=== PATIENT | male | born 1990 | race Caucasian/White ===

== ENCOUNTER → 2017-03-24 | Outpatient (CLI) | payer OTHER ==
[2017-03-26 11:20] LABS: HCV Qualitative Result DETECTED (Not detected)
== END | disposition home or self-care (01) ==
LOC: LABWHC1 11:59
PROVIDERS: ATTEND Physician Assistant
DX: B18.2 Chronic viral hepatitis C (principal)
CPT/HCPCS: 36415; 87522; 87902

== ENCOUNTER 2018-08-10 07:56 | Emergency (ER) | payer OTHER ==
[2018-08-10 08:02] VITALS: RESP 18
[2018-08-10] MEDS ORDERED: SODIUM CHLORIDE 0.9% 1,000 ML IV STA (08:12)
[2018-08-10] MEDS ORDERED: ONDANSETRON 4 MG/2 ML VIAL IVP STA (08:12)
[2018-08-10] MEDS ORDERED: PANTOPRAZOLE 40 MG/10 ML VIAL IVP STA (08:12)
--- NOTE | 2018-08-10 08:20 | ED ---
General Adult HPI - General Chief complaint: GI Bleed Stated complaint: Vomiting blood Time Seen by Provider: 08/10/18 08:06 Source: patient, RN notes reviewed Mode of arrival: ambulatory Limitations: no limitations - History of Present Illness Initial comments: Patient 28-year-old male significant past medical history for alcohol, hepatitis C, presenting to the emergency room today with a chief complaint of nausea vomiting this morning. Patient states that he had 3 episodes of vomitus point approximate 4:30 AM. Patient states that he had 2 episodes of vomiting after drinking some milk. States on the third episode he noticed some blood. Patient denies any complaints at this time. He denies any other symptoms. Patient denies any recent fever, chills, shortness of breath, chest pain, back pain, numbness or tingling, dysuria or hematuria, constipation or diarrhea, headaches or visual changes, or any other complaints. - Related Data Previous Rx's Medication Instructions Recorded Omeprazole 20 mg PO DAILY #20 capsule. 08/10/18 Ondansetron Odt [Zofran ODT] 4 mg PO Q8HR PRN #20 tab 08/10/18 Allergies Allergy/AdvReac Type Severity Reaction Status Date / Time No Known Allergies Allergy Verified 08/10/18 08:48 Review of Systems ROS Statement: Those systems with pertinent positive or pertinent negative responses have been documented in the HPI. ROS Other: All systems not noted in ROS Statement are negative. Past Medical History Past Medical History: No Reported History History of Any Multi-Drug Resistant Organisms: None Reported Past Surgical History: No Surgical Hx Reported Past Psychological History: No Psychological Hx Reported Smoking Status: Current some day smoker Past Alcohol Use History: Daily Past Drug Use History: Heroin General Exam - General Exam Comments Initial Comments: General: The patient is awake and alert, in no distress, and does not appear acutely ill. Eye: Extra-ocular movements are intact. No nystagmus. There is normal conjunctiva bilaterally. No signs of icterus. Ears, nose, mouth and throat: There are moist mucous membranes and no oral lesions. Neck: The neck is supple, there is no tenderness or JVD. Cardiovascular: There is a regular rate and rhythm. No murmur, rub or gallop is appreciated. Respiratory: Lungs are clear to auscultation, respirations are non-labored, breath sounds are equal. No wheezes, stridor, rales, or rhonchi. Gastrointestinal: Soft, non-distended, non-tender abdomen without masses or organomegaly noted. There is no rebound or guarding present. No CVA tenderness. Bowel sounds are unremarkable. Musculoskeletal: Normal ROM, no tenderness. Neurological: A&O x 3. CN II-XII intact, There are no obvious motor or sensory deficits. Coordination appears grossly intact. Speech is normal. Skin: Skin is warm and dry and no rashes or lesions are noted. Psychiatric: Cooperative, appropriate mood & affect, normal judgment. Limitations: no limitations Course Vital Signs 08/10/18 07:58 Temperature 98.5 F Pulse Rate 82 Respiratory 18 Rate Blood Pressure 136/90 O2 Sat by Pulse 98 Oximetry Medical Decision Making - Medical Decision Making Patient reexamined at this time shows no signs of stress is resting comfortable. Patient has no complaints. His abdomen soft on palpation. Patient had episode of blood in the emesis after 3 episodes of vomiting this morning. He saw blood on the third episode. Patient's liver enzymes mildly elevated has a history of hepatitis C. Is a daily drinker. Patient given Protonix and Zofran here in the emergency room. His labs remaining labs reviewed and are unremarkable. X-rays negative for any acute abnormalities patient's resting comfortably will be discharged on continued on Prilosec, nausea medication and advised follow-up with GI. Advised return for any concerns. - Lab Data Result diagrams: 08/10/18 08:20 08/10/18 08:20 Lab Results 08/10/18 08/10/18 08/10/18 Range/Units 08:20 08:20 08:20 WBC 5.1 (3.8-10.6) k/uL RBC 4.82 (4.30-5.90) m/uL Hgb 15.6 (13.0-17.5) gm/dL Hct 47.8 (39.0-53.0) % MCV 99.1 (80.0-100.0) fL MCH 32.4 (25.0-35.0) pg MCHC 32.7 (31.0-37.0) g/dL RDW 12.2 (11.5-15.5) % Plt Count 289 (150-450) k/uL Neutrophils % 54 % Lymphocytes % 31 % Monocytes % 10 % Eosinophils % 2 % Basophils % 1 % Neutrophils # 2.8 (1.3-7.7) k/uL Lymphocytes # 1.6 (1.0-4.8) k/uL Monocytes # 0.5 (0-1.0) k/uL Eosinophils # 0.1 (0-0.7) k/uL Basophils # 0.0 (0-0.2) k/uL Sodium 142 (137-145) mmol/L Potassium 4.4 (3.5-5.1) mmol/L Chloride 103 (98-107) mmol/L Carbon Dioxide 25 (22-30) mmol/L Anion Gap 14 mmol/L BUN 6 L (9-20) mg/dL Creatinine 0.72 (0.66-1.25) mg/dL Est GFR (CKD-EPI)AfAm >90 (>60 ml/min/1.73 sqM) Est GFR (CKD-EPI)NonAf >90 (>60 ml/min/1.73 sqM) Glucose 91 (74-99) mg/dL Calcium 10.3 H (8.4-10.2) mg/dL Total Bilirubin 1.3 (0.2-1.3) mg/dL AST 131 H (17-59) U/L ALT 148 H (21-72) U/L Alkaline Phosphatase 87 (38-126) U/L Total Protein 8.5 H (6.3-8.2) g/dL Albumin 4.6 (3.5-5.0) g/dL Amylase 39 (30-110) U/L Lipase 180 (23-300) U/L Urine Color Light Yellow Urine Appearance Turbid (Clear) Urine pH 8.0 (5.0-8.0) Ur Specific [place] 1.009 (1.001-1.035) Urine Protein Negative (Negative) Urine Glucose (UA) Negative (Negative) Urine Ketones Negative (Negative) Urine Blood Negative (Negative) Urine Nitrite Negative (Negative) Urine Bilirubin Negative (Negative) Urine Urobilinogen <2.0 (<2.0) mg/dL Ur Leukocyte Esterase Negative (Negative) Ur Squamous Epith Cells <1 (0-4) /hpf Amorphous Sediment Many H (None) /hpf Urine Mucus Rare H (None) /hpf Disposition Clinical Impression: Nausea & vomiting, Elevated liver enzymes Disposition: HOME SELF-CARE Condition: Good Instructions: Acute Nausea and Vomiting (ED) Additional Instructions: Please use medication as discussed. Please follow-up with GI/family doctor in the next 2 days of symptoms have not improved. Please return to emergency room if the symptoms increase or worsen or for any other concerns. Prescriptions: Omeprazole 20 mg PO DAILY #20 capsule. Ondansetron Odt [Zofran ODT] 4 mg PO Q8HR PRN #20 tab PRN Reason: Nausea Is patient prescribed a controlled substance at d/c from ED?: No Referrals: None,Stated [Primary Care Provider] - 1-2 days Doreen Blue MD [STAFF PHYSICIAN] - 1-2 days Time of Disposition: 09:17
[2018-08-10 08:40] LABS: Basophils % (A) 1 %; Eosinophils # (A) 0.1 k/uL (0-0.7); Eosinophils % (A) 2 %; HCT 47.8 % (39.0-53.0); HGB 15.6 gm/dL (13.0-17.5); Lymphocytes # (A) 1.6 k/uL (1.0-4.8); Lymphocytes % (A) 31 %; MCH 32.4 pg (25.0-35.0); MCHC 32.7 g/dL (31.0-37.0); MCV 99.1 fL (80.0-100.0); Mean Platelet Volume 6.6; Monocytes # (A) 0.5 k/uL (0-1.0); Monocytes % (A) 10 %; Neutrophils # (A) 2.8 k/uL (1.3-7.7); Neutrophils % (A) 54 %; Platelet Count 289 k/uL (150-450); RBC 4.82 m/uL (4.30-5.90); RDW 12.2 % (11.5-15.5); WBC 5.1 k/uL (3.8-10.6)
[2018-08-10 08:49] LABS: Amorphous Sediment,Urine Many /hpf; Appearance,Urine Turbid (Clear); Bilirubin,Urine Negative (Negative); Blood,Urine Negative (Negative); Color,Urine Light Yellow; Glucose,Urine (UA) Negative (Negative); Ketones,Urine Negative (Negative); Leukocyte Esterase,Urine Negative (Negative); Mucus,Urine Rare /hpf; Nitrite,Urine Negative (Negative); Protein,Urine Negative (Negative); Specific Gravity,Urine 1.009 (1.001-1.035); Squamous Epithelial Cell,Urine <1 /hpf (0-4); Urobilinogen,Urine <2.0 mg/dL (<2.0)
[2018-08-10 08:50] LABS: ALT 148 U/L (21-72); AST 131 U/L (17-59); Albumin 4.6 g/dL (3.5-5.0); Alkaline Phosphatase 87 U/L (38-126); Amylase 39 U/L (30-110); Anion Gap 14 mmol/L; Blood Urea Nitrogen 6 mg/dL (9-20); Calcium 10.3 mg/dL (8.4-10.2); Carbon Dioxide 25 mmol/L (22-30); Chloride 103 mmol/L (98-107); Glucose 91 mg/dL (74-99); Lipase 180 U/L (23-300); Potassium 4.4 mmol/L (3.5-5.1); Sodium 142 mmol/L (137-145); Total Bilirubin 1.3 mg/dL (0.2-1.3); Total Protein 8.5 g/dL (6.3-8.2)
--- NOTE | 2018-08-10 09:03 | XR ---
EXAMINATION TYPE: XR chest 2V DATE OF EXAM: 08/10/2018 COMPARISON: NONE HISTORY: Chest pain TECHNIQUE: Frontal and lateral views of the chest are obtained. FINDINGS: There is no focal air space opacity. No evidence for pneumothorax. No pleural effusion. The cardiac silhouette size is within normal limits. The osseous structures are grossly intact. IMPRESSION: 1. No acute cardiopulmonary process.
[2018-08-10 09:55] VITALS: BP 145/92; PULSE 66; TEMP 98
== END 2018-08-10 09:50 | disposition home or self-care (01) ==
LOC: EC 07:56
DX: R11.2 Nausea with vomiting, unspecified (principal); R74.8 Abnormal levels of other serum enzymes; F17.200 Nicotine dependence, unspecified, uncomplicated; Z86.19 Personal history of other infectious and parasitic diseases
CPT/HCPCS: 99285; 96374; 96375; 96361; 36415; 80053; 82150; 83690; 85025; 81001; 71046; J2405; C9113

== ENCOUNTER → 2018-08-25 | Outpatient (CLI) | payer OTHER ==
[2018-08-25 13:53] LABS: Prothrombin Time 10.2 sec (9.0-12.0)
--- NOTE | 2018-08-25 16:02 | US ---
EXAMINATION TYPE: US liver DATE OF EXAM: 08/25/2018 COMPARISON: NONE CLINICAL HISTORY: B18.2 Chronic viral hepatitis C. EXAM MEASUREMENTS: Liver Length: 15.6 cm Gallbladder Wall: 0.1 cm CBD: 0.2 cm Right Kidney: 10.4 x 5.6 x 4.3 cm Pancreas: Tail obscured by overlying bowel gas Liver: Increased attenuation Gallbladder: wnl Evidence for sonographic Busby's sign: No CBD: wnl Right Kidney: wnl and the right kidney shows normal cortical medullary differentiation. There is no ascites. IMPRESSION: Exam is somewhat limited. Coarse echotexture within the liver could be due to hepatocellu lar disease, hepatic steatosis.
[2018-08-27 13:45] LABS: Hepatits C Virus RNA DETECTED (Not detected); LOG HCV IU/mL 5.56 (<1.08)
== END ==
LOC: RADUSWWP 12:39
DX: K76.0 Fatty (change of) liver, not elsewhere classified (principal); B18.2 Chronic viral hepatitis C
CPT/HCPCS: 36415; 76705; 85610; 87522

== ENCOUNTER → 2019-02-05 | Outpatient (CLI) | payer OTHER ==
[2019-02-05 12:51] LABS: HCT 50.2 % (39.0-53.0); HGB 16.2 gm/dL (13.0-17.5); MCH 30.4 pg (25.0-35.0); MCHC 32.3 g/dL (31.0-37.0); MCV 94.1 fL (80.0-100.0); Platelet Count 258 k/uL (150-450); RBC 5.33 m/uL (4.30-5.90); WBC 6.6 k/uL (3.8-10.6)
[2019-02-05 20:24] LABS: Albumin 4.8 g/dL (3.80-4.90); Albumin/Globulin Ratio 1.66 (1.60-3.17); Bilirubin, Conjugated 0.4 mg/dL (0.20-0.40); Bilirubin,Unconjugated 1.1 mg/dL; Globulin 2.9 g/dL (1.6-3.3); Total Bilirubin 1.5 mg/dL (0.3-1.2); Total Protein 7.7 g/dL (6.2-8.2)
[2019-02-08 10:13] LABS: Hepatits C Virus RNA DETECTED (Not detected); Hepatits C Virus RNA, Quant 40 IU/mL (<12)
== END | disposition home or self-care (01) ==
LOC: LABWHC1 11:59
PROVIDERS: ATTEND Physician Assistant
DX: B18.2 Chronic viral hepatitis C (principal)
CPT/HCPCS: 36415; 80076; 85027; 87522